=== PATIENT | female | born 1955 | race Caucasian/White ===

== ENCOUNTER 2024-02-04 15:50 | Emergency (ER) | payer MEDICARE, OTHER ==
[~2024-02-04] VITALS: Ht 162.6 cm; Wt 75.1 kg
[2024-02-04] MEDS: normal saline 1000ML IV soln IVB ONE (16:11)
[2024-02-04] MEDS: proCHLORperazine 10 MG/2 ml inj IV ONE (16:14)
[2024-02-04] MEDS: morphine 2 MG/ML inj. syringe IV PRN (16:14)
[2024-02-04 16:15] LABS: BILIRUBIN,URINE NEGATIVE (Neg); CLARITY,URINE CLEAR (Clear); COLOR,URINE YELLOW (Yellow); GLUCOSE, URINE NEGATIVE (Neg); KETONES,URINE 40 mg/dl (Neg); LEUKOCYTE ESTERASE ,URINE NEGATIVE (Neg); NITRITES, URINE NEGATIVE (Neg); OCCULT BLOOD,URINE NEGATIVE (Neg); PH,URINE 6.5 (4.8-8.0); PROTEIN,URINE NEGATIVE (Neg); UROBILINOGEN,URINE 0.2 E.U/dL (0.2-1.0)
[2024-02-04] MEDS: diphenhydrAMINE 50 mg/ml inj IV ONE (16:16)
[2024-02-04 16:18] LABS: UA COLLECTION TYPE CLN CATCH MIDSTREAM
[2024-02-04 16:34] LABS: BASOPHILS % (AUTO) 0.2 % (0-1); EOSINOPHILS % (AUTO) 0.4 % (0-6); HEMOGLOBIN 14.4 g/dl (12.0-16.0); MONOCYTES # (AUTO) 0.4 X10'3 (0-0.9)
[2024-02-04 16:36] LABS: HEMATOCRIT 43.3 % (35.0-45.0); LYMPHOCYTES % (AUTO) 11.4 % (21-51); MEAN CORPUSCULAR HEMOGLOBIN 30.1 PG (27.0-31.0); MEAN CORPUSCULAR HGB CONC 33.3 g/dL (33.0-36.5); MEAN CORPUSCULAR VOLUME 90.3 FL (78-98); MEAN PLATELET VOLUME 9.5 FL (7.4-10.4); MONOCYTES % (AUTO) 4.2 % (2-12); NEUTROPHILS # (AUTO) 7.6 X10'3 (1.8-7.7); NEUTROPHILS % (AUTO) 83.8 % (42-75); PLATELET COUNT 201 X10'3 (140-440); RED BLOOD COUNT 4.79 X10'6 (4.20-5.60); RED CELL DISTRIBUTION WIDTH 14.3 % (11.5-14.5); WHITE BLOOD COUNT 9.1 X10'3 (4.5-11.0)
[2024-02-04 16:42] LABS: ALANINE AMINOTRANSFERASE 30 U/L (12-78); ALBUMIN 3.6 G/DL (3.4-5.0); ALBUMIN/GLOBULIN RATIO 0.9 (1.1-1.5); ALKALINE PHOSPHATASE 80 IU/L (46-116); ANION GAP 5 (8-16); ASPARTATE AMINO TRANSFERASE 21 U/L (10-37); BILIRUBIN,TOTAL 0.3 MG/DL (0.1-1.0); BLOOD UREA NITROGEN 21 MG/DL (7-18); BUN/CREATININE RATIO 19.4 (10.0-20.0); CALCIUM 9.1 MG/DL (8.5-10.1); CHLORIDE 109 MMOL/L (99-107); CREATININE 1.08 MG/DL (0.40-0.90); GLUCOSE 133 MG/DL (70-104); POTASSIUM 3.9 MMOL/L (3.5-5.1); SODIUM 143 MMOL/L (135-145); TOTAL CARBON DIOXIDE 29.3 MMOL/L (24-32); TOTAL PROTEIN 7.4 G/DL (6.4-8.2); eCRCL 43 ML/MIN; eGFR 50 ML/MIN
[2024-02-04 16:46] LABS: BILIRUBIN,DIRECT 0.1 MG/DL (0-0.3); LIPASE 40 U/L (16-77)
[2024-02-04] MEDS ORDERED: iohexol 300mg/ml 100ml inj. ONE (16:53)
[2024-02-04] MEDS: normal saline 1000ml 1,000 ML IV ONE (17:23)
[2024-02-04] MEDS ORDERED: ONDA-245 PO (17:37)
[2024-02-04] MEDS ORDERED: FLO0.4C PO (17:37)
[2024-02-04] MEDS ORDERED: HYDR-3964 PO (17:37)
[2024-02-04] MEDS ORDERED: IBUP-1984 PO (17:37)
[2024-02-04 19:05] VITALS: BP 140/74; PULSE 78; RESP 15; TEMP 97.7; O2SAT 95
== END 2024-02-04 19:13 | disposition home or self-care (01) ==
LOC: ER 15:51
DX: N20.0 Calculus of kidney (principal); Z90.710 Acquired absence of both cervix and uterus; Z88.8 Allergy status to other drugs, medicaments and biological substances; Z79.1 Long term (current) use of non-steroidal anti-inflammatories (NSAID); Z79.899 Other long term (current) drug therapy
CPT/HCPCS: 74177; 80048; 80076; 81003; 83690; 84484; 85025; 93005; 96361; 96374; 96375; 99285; J0780; J1200; J2270; J7030; Q9967